=== PATIENT | female | born 1970 | race Caucasian/White ===

== ENCOUNTER 2016-05-24 06:31 | Day surgery (SDC) | payer OTHER, MEDICARE ==
[~2016-05-24] VITALS: Ht 160 cm; Wt 75.0 kg
[~2016-05-24 06:31] MED LIST: ANAS1TAB PO; DAPA5TAB PO; LORA0.5T PO; NP T30TA PO; PANT20 PO; TOPR50TA PO
[2016-05-24 06:54] VITALS: BP 126/78; PULSE 63; RESP 20; TEMP 98; O2SAT 95
[2016-05-24] MEDS ORDERED: LEVO.075 PO (06:59)
[2016-05-24] MEDS ORDERED: LEXA10TA PO (06:59)
[2016-05-24] MEDS ORDERED: ANAS1TAB PO (06:59)
[2016-05-24] MEDS ORDERED: ZETI10TA5 PO (06:59)
[2016-05-24] MEDS ORDERED: TOPR50TA PO (06:59)
[2016-05-24] MEDS ORDERED: PROT40TA PO (06:59)
[2016-05-24] MEDS ORDERED: METF500T PO (06:59)
[2016-05-24] MEDS ORDERED: LINA290C PO (06:59)
[2016-05-24] MEDS ORDERED: SODIUM CHLORIDE 0.9% 1000 ML IV SCH (07:00)
[2016-05-24 07:27] LABS: AUTOMATED NEUTROPHIL # 6.2 TH/MM3 (1.8-7.7); BASOPHIL % 0.2 % (0.0-2.0); HEMATOCRIT 36.9 % (35.0-46.0); HEMO FLAGS DIFF FINAL; LYMPH % 18.1 % (9.0-44.0); LYMPHOCYTE # 1.4 TH/MM3 (1.0-4.8); MEAN CELL VOLUME 84.7 FL (80.0-100.0); MEAN CORPUSCULAR HEMOGLOBIN 29.1 PG (27.0-34.0); MEAN CORPUSCULAR HGB CONC 34.3 % (32.0-36.0); MONO % 2.4 % (0.0-8.0); NEUT % 79.3 % (16.0-70.0); PLATELET COUNT 227 TH/MM3 (150-450); RED BLOOD COUNT 4.35 MIL/MM3 (4.00-5.30); RED CELL DISTRIBUTION WIDTH 13.6 % (11.6-17.2); WHITE BLOOD COUNT 7.9 TH/MM3 (4.0-11.0)
[2016-05-24 07:36] LABS: APTT (PATIENT) 23.2 SEC (24.3-30.1); INTERNATIONAL NORMALIZED RATIO 0.9 RATIO; PROTHROMBIN TIME - PATIENT 10.4 SEC (9.8-11.6)
[2016-05-24 08:25] VITALS: BP 110/65; PULSE 58; RESP 16; O2SAT 97
--- NOTE | 2016-05-24 08:26 | PD.RAD ---
Post Procedure Progress Note Pre Procedure Diagnosis: (1) Swelling of right upper extremity Post Procedure Diagnosis: (1) Swelling of right upper extremity Procedure Date: May 24, 2016 Supervising Radiologist: Dean Hutchinson Plan of Activity Patient to Unit: [facility] Patient Condition: Good Additional Comments: Normal venogram of the right upper extremity. Right subclavian and SVC are widely patent. See PACS Report for procedural detail/treatment Dean Hutchinson MD May 24, 2016 08:26
[2016-05-24] MEDS ORDERED: IOHEXOL 350 MG/ML 100 ML BTL (for RAD DIAG) IV ONE (08:47)
--- NOTE | 2016-05-24 08:57 | RADRPT ---
EXAM DATE/TIME: 05/24/2016 07:48 [facility] COMPARISON: No previous studies available for comparison. INDICATIONS : Right chest wall swelling. MEDICAL HISTORY : 1. Breast cancer 2.GERD 3.[place] Palsy 4. Hypothyroid 5. Gastroparesis 6. DM 7. Sleepapnea SURGICAL HISTORY : 1. Bilateral mastectomy 2. D &C 3.Hysterectomy 4. breast reconstruction 5. heart cath ENCOUNTER: Initial ACUITY: 4 - 6 months PAIN SCORE: FLUORO TIME: 0.8 minutes ACCESS SITE: Right arm CONTRAST: 20 cc Omnipaque (iohexol) 350 PROCEDURE : 1. Ultrasound-guided venipuncture. 2. Venogram. The risks, benefits and alternatives to the procedure were explained and verbal and written consent w as obtained. The site was prepped in sterile fashion. Full sterile technique was used, including ca p, mask, sterile gloves and gown and a large sterile sheet. Hand hygiene and 2% chlorhexidine and/or betadine/alcohol prep was utilized per protocol for cutaneous antisepsis. The skin and subcutaneous tissues were infiltrated with local anesthetic solution. The patient's existing IV in the right hand was accessed. Approximately 25 cc of contrast was instill ed through the IV. Imaging of the right upper extremity and chest was performed. The radial and ulnar veins are patent. The interosseous veins are patent. They are small in caliber. Within the arm, the cephalic, basilic and brachial veins are patent. There are small in caliber. The axillary vein is a sizable vessel. The subclavian vein and SVC are widely patent. CONCLUSION: No evidence of central venous thrombosis. Dean Hutchinson MD on May 24, 2016 at 8:54 Board Certified Radiologist. This report was verified electronically.
== END 2016-05-24 09:00 | disposition home or self-care (01) ==
LOC: HROP 06:31 → HRIP 06:33 → HROP 09:00
PROVIDERS: ATTEND Internal Medicine Hematology & Oncology
DX: M79.89 Other specified soft tissue disorders (principal); R22.2 Localized swelling, mass and lump, trunk; C50.412 Malignant neoplasm of upper-outer quadrant of left female breast; K21.9 Gastro-esophageal reflux disease without esophagitis; E03.9 Hypothyroidism, unspecified; E11.9 Type 2 diabetes mellitus without complications; K31.84 Gastroparesis
CPT/HCPCS: 36005; 75820; 80048; 85025; 85610; 85730; J7030; Q9967